=== PATIENT | female | born 2005 | race Caucasian/White ===

== ENCOUNTER 2023-12-23 20:07 | Emergency (ER) | payer BC ==
[2023-12-23] MEDS ORDERED: Amoxicillin 500 MG Cap PO ONE (21:27)
== END 2023-12-23 22:21 | disposition home or self-care (01) ==
LOC: FB.ED 20:07
DX: K08.89 Other specified disorders of teeth and supporting structures (principal); Z91.048 Other nonmedicinal substance allergy status
CPT/HCPCS: 99282; A9270; 99283